=== PATIENT | male | born 1935 | race African-American/Black ===

== ENCOUNTER 2018-03-04 21:26 | Emergency (ER) | payer MEDICARE ==
[~2018-03-04] VITALS: Ht 180.3 cm; Wt 91.0 kg
[2018-03-04] MEDS ORDERED: HYDROCODONE/ACETAMINOPHEN 5/325MG TABLET PO ONE (23:00)
[2018-03-05 02:40] VITALS: BP 143/78
== END 2018-03-05 02:51 | disposition home or self-care (01) ==
LOC: EDBD 21:26 → ER 22:33
DX: S22.32XA Fracture of one rib, left side, initial encounter for closed fracture (principal); F03.90 Unspecified dementia, unspecified severity, without behavioral disturbance, psychotic disturbance, mood disturbance, and anxiety; Z94.4 Liver transplant status; W10.8XXA Fall (on) (from) other stairs and steps, initial encounter; Y93.89 Activity, other specified; Y92.89 Other specified places as the place of occurrence of the external cause; Y99.8 Other external cause status
CPT/HCPCS: 70450; 71100; 99284